=== PATIENT | female | born 1955 | race Hispanic/Latino ===

== ENCOUNTER 2024-05-03 09:49 | Day surgery (SDC) | payer MEDICARE ==
[2024-05-03] VITALS (17 sets, daily range): BP systolic 90–135; BP diastolic 34–68; PULSE 66–78; RESP 15–18
[~2024-05-03] VITALS: Ht 152.4 cm; Wt 70.3 kg
[~2024-05-03 09:49] MED LIST: ATOR10 PO; DAPA10TA PO; EZET10TA48 PO; LISI2.5T13 PO; METF-444 PO; METO-408 PO
[2024-05-03] MEDS ORDERED: SACU1TAB PO (10:42)
[2024-05-03] MEDS: 0.9%NACL 1000ML 1,000 ML IV ONE (11:10)
[2024-05-03] MEDS ORDERED: PROPOFOL 10 MG/ML 20ML VIAL IV ONE (12:56)
== END 2024-05-03 15:10 | disposition home or self-care (01) ==
LOC: DAH 09:49 → ENDO 09:49
PROVIDERS: ATTEND Internal Medicine Gastroenterology
DX: Z12.11 Encounter for screening for malignant neoplasm of colon (principal); K44.9 Diaphragmatic hernia without obstruction or gangrene; K29.70 Gastritis, unspecified, without bleeding; K29.50 Unspecified chronic gastritis without bleeding; R12 Heartburn; Z86.010 Personal history of colon polyps; E11.9 Type 2 diabetes mellitus without complications; M81.0 Age-related osteoporosis without current pathological fracture; M19.90 Unspecified osteoarthritis, unspecified site; I25.10 Atherosclerotic heart disease of native coronary artery without angina pectoris; E66.9 Obesity, unspecified; E78.5 Hyperlipidemia, unspecified; Z79.84 Long term (current) use of oral hypoglycemic drugs; Z79.899 Other long term (current) drug therapy; Z68.30 Body mass index [BMI] 30.0-30.9, adult
CPT/HCPCS: 43239; G0105; J7030; J2704; A4620; A4215 ×2; A4223; A4222; A4221; A4663; A4606; 45378; J3490